=== PATIENT | male | born 1960 ===

== ENCOUNTER → 2022-10-18 | Emergency (ER) | payer OTHER ==
[~2022-10-18] VITALS: Ht 167.6 cm; Wt 77.1 kg
[~2022-10-18] MED LIST: BACTRIM DS TAB1 EACH PO; CORTISONE60 GM TOP; LOSARTAN POTASS50 MG PO; MICONAZOLE NITR15 GM TOP
== END | disposition home or self-care (01) ==
LOC: ER 12:58
DX: L03.011 Cellulitis of right finger (principal)